=== PATIENT | male | born 1990 | race Caucasian/White ===

== ENCOUNTER → 2018-11-22 | Outpatient (REF) | payer OTHER ==
[2018-11-22 13:21] LABS: SEMEN APPEARANCE OPAQUE (OPAQUE); SEMEN VISCOSITY LIQUID (LIQUID); SEMEN VOLUME 2.3 ml (2.0-5.0); SEMEN pH 8.5 (7.0-8.0)
[2018-11-22 13:22] LABS: SPERM CONCENTRATION 13.6 M/ml (>=15.0); WBC CONCENTRATION >1 M/ml (<=1 M/ml)
== END ==
LOC: M LAB REF 10:21
PROVIDERS: ATTEND General Practice
DX: Z31.41 Encounter for fertility testing (principal)

== ENCOUNTER → 2019-04-20 | Outpatient (CLI) | payer OTHER ==
--- NOTE | 2019-04-20 19:28 | REP ---
Four views right: 04/20/2019. Indication: Pain following injury. Comparison: None. Findings: There is no acute fracture, subluxation or dislocation. Bony alignment is anatomic. Impression: No acute fracture. Electronically Signed by Corby Jacobsen DO 04/20/2019 07:19 P
== END ==
LOC: M LRY 18:10
PROVIDERS: ATTEND Nurse Practitioner Family
DX: S67.01XA Crushing injury of right thumb, initial encounter (principal); X58.XXXA Exposure to other specified factors, initial encounter
CPT/HCPCS: 12001; 73140; G0463